=== PATIENT | female | born 1980 | race Caucasian/White ===

== ENCOUNTER 2023-09-30 09:17 | Emergency (ER) | payer BC, SELFPAY ==
--- NOTE | ~2023-09-30 | US_ITS ---
US venous doppler LE RT DATE: 09/30/2023 10:09 INDICATION: Right thigh redness and swelling TECHNIQUE: Real-time and color flow imaging and Doppler analysis of the veins of the right lower extr emity COMPARISON: None FINDINGS: The right greater saphenous vein is patent. There is spontaneous and phasic flow and normal augmentation and color flow signal and normal compression of the right common femoral, femoral, popl iteal, posterior tibial and peroneal veins. IMPRESSION: No evidence of deep venous thrombosis of right lower extremity Reviewed, dictated and finalized at [facility]. Reviewed, dictated and finalized at [facility]. [employer] INVESTIGATOR
[2023-09-30 09:29] VITALS: BP 118/69; PULSE 83; RESP 20; TEMP 36.9; O2SAT 99
--- NOTE | 2023-09-30 11:50 | ED.GENADULT ---
HPI - General Adult General Chief complaint: Extremity Problem,Nontraumatic Stated complaint: r/o DVT from urgent care Time Seen by Provider: 09/30/23 11:26 History of Present Illness HPI narrative: Patient is a 43-year-old female who presents ER with a need to rule out a DVT. She noticed redness streaking up her leg over last day. She had fever last night. No new injury to the leg. No chest pain or shortness of breath. No history of DVT. No edema to lower extremity. Patient does have some eczema over the anterior velásquez where this redness associated streaking up the medial thigh. No palpable cord. Related Data Allergies Allergy/AdvReac Type Severity Reaction Status Date / Time No Known Allergies Allergy Verified 09/30/23 11:34 Review of Systems Constitutional: Constitutional: Denies chills, Denies fatigue and Reports fever(s) Cardiovascular: Cardiovascular: Denies chest pain Respiratory: Respiratory: Denies cough and Denies dyspnea Integumentary/Breasts: Skin/Breast: Reports erythema, Reports rash and Denies skin ulcer PMFSH Past Medical History Medical History (Updated 09/30/23 @ 18:56 by Abel Sanchez MD) Healthy female adult Surgical History Surgical History (Updated 09/30/23 @ 18:56 by Abel Sanchez MD) No pertinent past surgical history Exam Narrative: GENERAL: Well-appearing, well-nourished, and in no acute distress. HEAD: Normocephalic, atraumatic. EXTREMITIES: Normal range of motion. No edema. SKIN: Warm, dry. Mild cellulitis/lymphangitic streaking is a right lower extremity anterior velásquez many of the medial thigh. No palpable cord. NEURO: Alert and oriented x3. PSYCH: Normal mood and affect. Course Course Emergency Course: No DVT on imaging. Given fever redness patient will be treated for cellulitis. Also discussed conservative treatments for superficial thrombophlebitis though no palpable cord is noted and there is not a superficial clot on ultrasound. Vital Signs Vital signs: Vital Signs Temperature 98.5 F 09/30/23 09:29 Pulse Rate 83 09/30/23 09:29 Respiratory Rate 20 09/30/23 09:29 Blood Pressure 118/69 09/30/23 09:29 Pulse Oximetry 99 09/30/23 09:29 Oxygen Delivery Room Air 09/30/23 09:29 Temperature 98.5 F 09/30/23 09:29 Pulse Rate 83 09/30/23 09:29 Respiratory Rate 20 09/30/23 09:29 Blood Pressure 118/69 09/30/23 09:29 Pulse Oximetry 99 09/30/23 09:29 Oxygen Delivery Room Air 09/30/23 09:29 Medical Decision Making Vital Signs Vital Signs: Vital Signs Temperature 98.5 F 09/30/23 09:29 Pulse Rate 83 09/30/23 09:29 Respiratory Rate 20 09/30/23 09:29 Blood Pressure 118/69 09/30/23 09:29 Pulse Oximetry 99 09/30/23 09:29 Oxygen Delivery Room Air 09/30/23 09:29 Temperature 98.5 F 09/30/23 09:29 Pulse Rate 83 09/30/23 09:29 Respiratory Rate 20 09/30/23 09:29 Blood Pressure 118/69 09/30/23 09:29 Pulse Oximetry 99 09/30/23 09:29 Oxygen Delivery Room Air 09/30/23 09:29 Imaging Data Radiologist's impression: ITS Impressions Venous Doppler Study 09/30/23 10:16 IMPRESSION: No evidence of deep venous thrombosis of right lower extremity Discharge Plan Discharge Clinical Impression: Cellulitis Patient Disposition: Home, Self-Care Condition: Stable Instructions: Cellulitis (ED) Additional Instructions: Return the ER if you have worsening redness, and chest pain no shortness of breath, you can keep down food water, or if additional concerns. Prescriptions: New cefuroxime axetil 500 mg tablet 500 mg PO BID Qty: 20 0RF Follow-up/Referrals: PHYSICIAN,[facility] [Primary Care Provider] - 1 Week
== END 2023-09-30 12:00 | disposition home or self-care (01) ==
PROVIDERS: Emergency Provider Emergency Medicine
DX: L03.115 Cellulitis of right lower limb (principal)
CPT/HCPCS: 93971; 99284